=== PATIENT | female | born 1935 | race Caucasian/White ===

== ENCOUNTER 2021-06-26 11:19 | Emergency (ER) | payer MEDICARE ==
[~2021-06-26] VITALS: Ht 160 cm; Wt 76.8 kg
[~2021-06-26 11:19] MED LIST: ACYCLOVIR800 MG PO; ADVAIR 100/28 DISKU1 IH; ANTIVERT 25MG25 MG PO; ASPIRIN 81M81 MG/TA2 PO; BYSTOLIC5 MG PO; COLACE 100100 MG/CAP SL; COZAAR100 MG PO; CRESTOR 10MG10 MG PO; FERROUS SU325 MG/TAB PO; FOLIC ACID 40400 MCG PO; HCTZ 25MG25 MG PO; LASIX 20MG TABL20 MG PO; LEVOTHYROXIN0.025 MG PO; LEVOXYL0.088 MG; LIPITOR 40MG TA40 MG PO; LORTAB 5/500 501 TAB PO; LUTEIN20 M1 PO; MAXZIDE-25MG TA1 TAB; NITROQUICK0.4 MG SL; NITROSTAT0.4 MG/TAB PO; NORCO 325 MG-7.1 TAB PO; PLAVIX 75MG TAB75 MG PO; PREDNISONE10 MG PO; PREVACID 15MG15 M1 PO; PREVACID 30MG30 M1 PO; ROXICODONE 55 MG/TAB PO; SINGULAIR 110 MG/TAB PO; SINGULAIR10 MG PO; TENORMIN 2525 MG/TAB PO; TYLENOL 500MG500 MG PO; VITAMIN C500 MG PO; ZESTRIL 5MG5 MG PO; ZOFRAN ODT4 MG PO
[2021-06-26] MEDS ORDERED: ZOFRAN ODT4 MG PO (14:30)
[2021-06-26 15:10] VITALS: BP 145/78; PULSE 88; TEMP 98
== END 2021-06-26 15:15 | disposition left against medical advice (07) ==
LOC: COL.ER 11:19
DX: R53.83 Other fatigue (principal); R11.2 Nausea with vomiting, unspecified; I10 Essential (primary) hypertension; E78.5 Hyperlipidemia, unspecified; I25.10 Atherosclerotic heart disease of native coronary artery without angina pectoris; J45.909 Unspecified asthma, uncomplicated; E03.9 Hypothyroidism, unspecified; K21.9 Gastro-esophageal reflux disease without esophagitis; Z79.890 Hormone replacement therapy; Z79.899 Other long term (current) drug therapy
CPT/HCPCS: J2405; J7030

== ENCOUNTER 2022-03-26 14:54 | Emergency (ER) | payer MEDICARE ==
[~2022-03-26] VITALS: Ht 160 cm; Wt 72.7 kg
[~2022-03-26 14:54] MED LIST changes: +K-DUR 10 MEQ T10 MEQ PO; +SYNTHROID0.1 MG/TAB PO
[2022-03-26 15:04] VITALS: TEMP 98.1
[2022-03-26 15:43] LABS: BASO # 0.1 K/mm3 (0.0-0.2); BASO % 0.8 % (0.0-2.0); EOS # 0.2 K/mm3 (0.0-0.7); EOS % 1.7 % (0.0-4.0); GRAN # 7.4 K/mm3 (1.4-6.5); GRAN % 72.5 % (42.2-75.2); HEMATOCRIT 39.3 % (37.0-47.0); HEMOGLOBIN 13.5 g/dl (12.5-16.0); LYMPH # 1.4 K/mm3 (1.2-3.4); LYMPH % 14.1 % (20.0-51.0); MEAN CELL VOLUME 92 fl (80.0-100.0); MEAN CORPUSCULAR HEMOGLOBIN 32 pg (27-31); MEAN CORPUSCULAR HGB CONC 34 g/dl (33.0-37.0); MONO # 1.1 K/mm3 (0.1-0.6); MONO % 10.5 % (1.7-9.3); PLATELET COUNT 312 K/mm3 (130-400); RED BLOOD COUNT 4.27 M/mm3 (4.10-5.30); REDCELL DISTRIBUTION WIDTH-CV 13.4 % (11.5-14.5)
[2022-03-26 16:02] LABS: ALBUMIN 3.5 gm/dL (3.4-4.8); BILIRUBIN,TOTAL 0.6 mg/dL (0.2-1.2); C-REACTIVE PROTEIN 8.17 mg/dL (0.00-0.50); CALCIUM 9.4 mg/dL (8.4-10.2); CREATININE, serum 0.91 mg/dL (0.57-1.11); POTASSIUM 4.3 mmol/L (3.5-4.5); TOTAL PROTEIN 6.7 gm/dL (6.2-8.1)
[2022-03-26] MEDS ORDERED: ANTIVERT 25MG25 MG PO (18:29)
[2022-03-26] MEDS ORDERED: PHENERGAN 25 TA25 MG PO (18:29)
[2022-03-26 19:43] VITALS: BP 157/82; PULSE 94
== END 2022-03-26 19:55 | disposition home or self-care (01) ==
LOC: COL.ER 14:54
PROVIDERS: Emergency Medicine
DX: R42 Dizziness and giddiness (principal); R11.2 Nausea with vomiting, unspecified
CPT/HCPCS: J2405; J2550; J7030